=== PATIENT | male | born 1995 | race African-American/Black ===

== ENCOUNTER 2023-12-03 14:15 | Emergency (ER) | payer MEDICAID, OTHER ==
[~2023-12-03] VITALS: Ht 180.3 cm; Wt 85.0 kg
[2023-12-03 14:17] VITALS: O2SAT 96
[2023-12-03] MEDS: LEVETIRACETAM 1000MG PREMIX 100 ML IV ONE (15:59)
[2023-12-03] MEDS: SODIUM CHLORIDE 0.9% 1,000 ML IV ONE (15:59)
[2023-12-03 18:03] LABS: MEAN CORPUSCULAR HGB CONC 33.3 g/dL (31.0-37.0); MEAN CORPUSCULAR VOLUME 93.4 fL (80.0-94.0); MEAN PLATELET VOLUME 8.5 fl (7.4-10.4); PLATELET 250 x1000/uL (130-400); RED BLOOD CELL COUNT 4.82 mill/uL (4.7-6.1); RED CELL DISTRIBUTION WIDTH 12.5 % (11.6-14.6); WHITE BLOOD COUNT 16.6 x1000/uL (4.5-11.0)
[2023-12-03 18:04] LABS: DIFFERENTIAL COMMENT 1
[2023-12-03 18:08] LABS: CHLORIDE 106 mEq/L (98-107); POTASSIUM 3.9 mEq/L (3.5-5.1); SODIUM 138 mEq/L (136-145)
[2023-12-03 18:10] LABS: CALCIUM 9.1 mg/dL (8.7-10.4); CARBON DIOXIDE 25 mEq/L (21-32)
[2023-12-03 18:14] LABS: PROTHROMBIN TIME 11.1 sec (9.6-11.0)
[2023-12-03 18:15] LABS: CREATININE 1.1 mg/dL (0.6-1.3); GLUCOSE 94 mg/dL (70-105)
[2023-12-03 18:16] LABS: UREA NITROGEN BLOOD 13 mg/dL (9-23)
[2023-12-03 18:22] LABS: CARBAMAZEPINE < 0.4 ug/mL (4-12); ETHANOL BLOOD < 10 mg/dL (<10); PHENOBARBITAL < 3.0 ug/mL (15.0-40.0); PHENYTOIN < 2.0 ug/mL (10-20); VALPROIC ACID < 3.0 ug/mL (50-100)
[2023-12-03 19:02] LABS: PLATELET ESTIMATE NORMAL
[2023-12-03 21:20] VITALS: BP 110/75; PULSE 74; RESP 15
== END 2023-12-03 21:15 | disposition home or self-care (01) ==
LOC: ER 14:15
DX: G40.909 Epilepsy, unspecified, not intractable, without status epilepticus (principal); Q28.2 Arteriovenous malformation of cerebral vessels
CPT/HCPCS: 80048; 80320; 80156; 80185; 82962; 80184; 80165; 85025; 85610; 36415; 70450; 96365; 99285; J1953; J7030; Z7610 ×3; G0480